=== PATIENT | male | born 1975 | race Two or more races ===

== ENCOUNTER 2016-12-13 17:12 | Emergency (ER) | payer OTHER ==
[~2016-12-13 17:12] MED LIST: ALPRAZOLAM0.5 M3 PO; AMBIEN5 M1 PO; NAPROXEN500 M1 PO; TRAMADOL HCL50 M2 PO; ULTRAM50 M1 PO
[2016-12-13] MEDS ORDERED: CYCLOBENZAPRINE5 M1 PO (19:13)
== END 2016-12-13 19:20 ==
LOC: EDMED 17:12
DX: S16.1XXA Strain of muscle, fascia and tendon at neck level, initial encounter (principal); M54.5 Low back pain; V43.52XA Car driver injured in collision with other type car in traffic accident, initial encounter; Y92.410 Unspecified street and highway as the place of occurrence of the external cause